=== PATIENT | male | born 1935 | race Caucasian/White ===

== ENCOUNTER 2017-03-30 06:03 | Observation (INO) | payer MEDICARE ==
--- NOTE | 2017-03-15 08:56 | HP ---
HISTORY AND PHYSICAL: DATE OF PLANNED ADMISSION AND SURGERY: 03/30/17 HISTORY OF PRESENT ILLNESS: Mr. Loco is an 81-year-old white male who is admitted with prostate enlargement and urinary retention for transurethral resection of the prostate. Please refer to the recent full history and physical exam and cardiac evaluation by Dr. Juan Borden. I am including a copy of his note. My dictation will concentrate on the urological condition. 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 He was kept on catheter drainage and tamsulosin was added. He was given a trial of voiding, but he failed it. He then had a cystoscopy which showed diffuse bladder trabeculations and prostate enlargement, but no bladder lesions seen. He had urodynamic studies in July 2016. The study showed poor detrusor voiding pressure, and the findings were consistent with impaired detrusor contraction, making him not a candidate for TURP. He was given the option to go on intermittent self-catheterization, but he preferred to stay on chronic Bower. The patient stayed on catheter drainage and on the finasteride. He had repeat urodynamic studies last month. The study showed recovery of his detrusor function and he was able to generate a voiding detrusor pressure of 50 cm water. This was felt to be enough that he would be a candidate for TURP. He had repeat cystoscopy this month and the study continued to show an enlarged obstructing prostate. He again failed a trial of voiding and the Bower catheter was reinserted. His past history is otherwise negative. His examination was normal and rectal exam showed an enlarged, but non-suspicious prostate. The patient is on multiple medications for his cardiac condition. He has a pacemaker. He is also on warfarin. He was advised to discontinue the warfarin 6 days prior to the planned surgery. I discussed the operation in detail with the patient and his . Some of the potential complications including infection, gross hematuria, persistent urinary retention because of the element of the flaccid bladder were also discussed. All their questions were answered. CC: Estiven Young MD* [id number]/[facility] #: [id number] JR
[~2017-03-30 06:03] MED LIST: Buffered Lidocaine 1% SYR 3ML* 3 ML/SYR SYRINGE INTRADERM ONE; Famotidine IV* 10 MG/ML 2 ML (20 mg) IV ONE; ZOSYN 3.375 GM ONE TIME DOSE-OVER 30 MINUTES IVPB
[2017-03-30] MEDS ORDERED: Famotidine IV* 10 MG/ML 2 ML (20 mg) ONE (06:14)
[2017-03-30] MEDS ORDERED: Dexamethasone IV* 4 MG/ML 1 ML (4 MG) ONE (07:18)
[2017-03-30] MEDS ORDERED: Midazolam* 1 MG/ML 5 ML VIAL (5 MG) ONE (07:18)
[2017-03-30] MEDS ORDERED: Ondansetron INJ* 2 MG/ML VIAL ONE (07:18)
[2017-03-30] MEDS ORDERED: Propofol* 10 MG/ML 20 ML BTL IV PUSH ONE (07:18)
[2017-03-30] MEDS ORDERED: KETAMINE HCL* 50 MG/ML 10 ML VIAL ONE (07:18)
[2017-03-30] MEDS ORDERED: Lidocaine 2% PF * 5 ML VIAL ONE (07:18)
[2017-03-30] MEDS ORDERED: fentaNYL* 50 MCG/ML 2 ML VIAL (100 MCG VIAL) ONE (07:18)
[2017-03-30] MEDS ORDERED: Phenylephrine INJ* 10 MG/ML 1 ML VIAL (10 MG) ONE (07:18)
[2017-03-30] MEDS ORDERED: Acetaminophen IV 1GM/100ML * 100 ML IVPB ONE (09:25)
[2017-03-30] MEDS ORDERED: fentaNYL* 50 MCG/ML 2 ML VIAL (100 MCG VIAL) IV PRN (09:25)
[2017-03-30] MEDS ORDERED: Ondansetron INJ* 2 MG/ML VIAL IV PRN (09:25)
[2017-03-30] MEDS ORDERED: Acetaminophen IV 1GM/100ML * 100 ML ONE (11:21)
[2017-03-30] MEDS ORDERED: LORazepam TAB(*) 0.5 MG PO PRN (12:32)
[2017-03-30] MEDS: LR @ 40 MLS/HR IV SCH ×2 (12:40→23:58)
[2017-03-30] MEDS: Ferrous Sulfate TAB* 325 MG PO SCH (12:58)
[2017-03-30] MEDS: Multivitamins/Minerals TAB PO SCH (12:58)
[2017-03-30] MEDS: Finasteride TAB* 5 MG PO SCH (12:59)
--- NOTE | 2017-03-30 13:09 | OP ---
DATE OF OPERATION: 03/30/17 - ROOM #336 DATE OF : 31 SURGEON: Bienvenido Mayo MD ANESTHESIOLOGIST: Dr. Abdias Hooper. ANESTHESIA: Spinal. PRE-OP DIAGNOSES: 1. Urinary retention. 2. Benign prostatic hyperplasia. POST-OP DIAGNOSES: 1. Urinary retention. 2. Benign prostatic hyperplasia. OPERATIVE PROCEDURE: 1. Cystoscopy. 2. Transurethral resection of the prostate. INDICATIONS FOR PROCEDURE: Mr. Loco is an 81-year-old white male who went into urinary retention about 9 months ago. At that time he failed a trial voiding while on tamsulosin and his urodynamic study showed poor detrusor contraction and he was kept on catheter drainage. He had repeat urodynamic studies last month showing recovery of the detrusor function and cystoscopy showed an obstructing prostate, he again failed a trial of voiding. He was felt to be a candidate for transurethral resection of the prostate. He had preoperative cardiac evaluation and clearance by Dr. Borden. He is now brought in for the above procedure. PATHOLOGY: At cystoscopy, the penile and bulbar urethra looked normal. The prostatic urethra measured 3 cm in length and there was moderate obstruction by trilobar hyperplasia of the prostate. Examination of the bladder showed moderate diffuse trabeculations. There was significant degree of catheter reaction. There were no suspicious bladder lesion seen. No calculi or diverticula were noted. The prostate adenoma was slightly vascular reflecting the effect of finasteride. There were no other abnormalities noted. DESCRIPTION OF THE PROCEDURE: After successful spinal anesthesia, the patient was placed in the lithotomy position and was prepped and draped for cystoscopy. Cystoscopy was performed. The bladder was carefully inspected and the above findings were noted. The resectoscope was then introduced inside the bladder. Mannitol-sorbitol solution was used for irrigation and the inflow and outflow were adjusted to avoid over distension of the bladder. Resection of the adenoma was started posteriorly between 3 o'clock and 8 o' clock that allowed visualization of the bladder neck at the level of the veru. The left lobe was then resected starting at 5 o'clock and proceeding anteriorly. The right lobe was resected next. The roof and the apical tissue were resected last. The limits of the resection were the bladder neck proximally, the veru distally, and the capsule circumferentially. The bleeders were electrocoagulated and controlled. The bladder was irrigated and the resected prostate tissue was evacuated and sent for pathology. At the completion of the resection, the prostatic urethra was wide open. Both ureteral orifices were intact. There was no bladder wall injury. The capsule was intact. There were no open sinuses and there was very good hemostasis. The veru and the external sphincter were intact. There was no significant residual obstructing tissue. At the completion of the procedure, the resectoscope was removed and the size 22 sinhala Bower catheter was placed inside the bladder and the balloon inflated with 30 cc of water and the catheter was placed under gentle traction and taped to the right side of the patient. Irrigation yielded clear returns. The patient tolerated the procedure well and left the operating room in good condition. The blood loss was negligible at less then 50 cc. The specimen was prostate chips. CC: Estiven Young MD* [id number]/[facility] #: [id number] MTDD
[2017-03-30] MEDS ORDERED: Furosemide IV* 10 MG/ML 2 ML VIAL (20 MG) ONE (13:25)
[2017-03-30] MEDS ORDERED: Piperac/Tazob 3.375 gm in NS* 3.375 GM/100 ML BAG IVPB SCH (15:30)
[2017-03-30] MEDS: Piperac/Tazob 3.375 gm in NS* 3.375 GM/100 ML BAG IVPB SCH ×2 (16:40→23:03)
[2017-03-30] MEDS: Insulin LISPRO* 1 UNITS UNIT SUBCUT SCH (17:52)
[2017-03-30] MEDS: Oxybutynin TAB* 5 MG PO PRN (19:26)
[2017-03-30] MEDS: Acetaminophen TAB* 325 MG PO PRN (19:29)
[2017-03-30] MEDS ORDERED: Atorvastatin* 40 MG TAB PO SCH (21:00)
[2017-03-30] MEDS: glipiZIDE TAB* 5 MG PO SCH (21:26)
[2017-03-31] MEDS: Insulin LISPRO* 1 UNITS UNIT SUBCUT SCH ×2 (00:40→07:03)
[2017-03-31] MEDS: Piperac/Tazob 3.375 gm in NS* 3.375 GM/100 ML BAG IVPB SCH ×2 (04:35→04:47)
[2017-03-31] MEDS: Oxybutynin TAB* 5 MG PO PRN (07:35)
[2017-03-31] MEDS: Acetaminophen TAB* 325 MG PO PRN (07:35)
[2017-03-31 08:01] VITALS: BP 180/80
[2017-03-31] MEDS ORDERED: Furosemide IV* 10 MG/ML 2 ML VIAL (20 MG) ONE (08:49)
[2017-03-31] MEDS: Multivitamins/Minerals TAB PO SCH (08:53)
[2017-03-31] MEDS: glipiZIDE TAB* 5 MG PO SCH (08:53)
[2017-03-31] MEDS: Finasteride TAB* 5 MG PO SCH (08:53)
[2017-03-31] MEDS: Ferrous Sulfate TAB* 325 MG PO SCH (08:53)
[2017-03-31] MEDS ORDERED: Furosemide IV* 10 MG/ML 2 ML VIAL (20 MG) IV ONE (09:00)
[2017-03-31] MEDS ORDERED: Metoprolol Succinate XL TAB* 25 MG PO SCH (09:00)
[2017-03-31] MEDS ORDERED: Insulin GLARGINE(*) 1 UNITS UNIT SUBCUT SCH (09:00)
[2017-03-31] MEDS ORDERED: CMC:Escitalopram (NF) 10 MG TAB PO SCH (09:00)
--- NOTE | 2017-04-01 01:36 | DS ---
DISCHARGE SUMMARY: DATE OF ADMISSION: 03/30/17 DATE OF DISCHARGE: 03/31/17 FINAL DIAGNOSES: 1. Urinary retention. 2. Benign prostatic hyperplasia. 3. Coronary artery disease. 4. History of cerebrovascular accident. 5. Essential hypertension. 6. Chronic obstructive pulmonary disease. 7. 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 OPERATION: Transurethral resection of the prostate on 03/30/17. HISTORY: Mr. Loco is an 81-year-old white male who went into urinary retention about 9 months ago. At that time, his urodynamic studies showed flaccid bladder and he was not found to be a candidate for prostatectomy. He had been kept on catheter drainage all this time. He was reevaluated recently and had a repeat urodynamic studies, which showed a partial recovery of the detrusor function and made him a candidate for TURP. The patient has been maintained on finasteride all this time. The patient has significant medical problems including history of coronary artery disease, aortic and mitral valve disease, history of CVAs and TIAs. He had been maintained on warfarin. He was evaluated preoperatively by Dr. Borden, his mixed animal veterinarian, and by Dr. Young. The patient was cleared for the procedure by Dr. Borden and the patient was admitted yesterday for transurethral resection of the prostate. He had been off the Coumadin for 5 days preoperatively. His preoperative lab work was all within normal. COURSE IN THE HOSPITAL: The patient was admitted the morning of his surgery. He underwent an uncomplicated transurethral resection of the prostate under spinal anesthesia. His postoperative course was very smooth. He was maintained on Zosyn pre and postoperatively because of resistant pseudomonas. He developed a brief episode of hypertension postoperatively with his systolic reaching 180. He responded well to 10 mg of Lasix. At the time of his discharge, the patient was doing very well. He has remained afebrile and his urine was clear. He did not have any chest pain or shortness of breath. The patient is being discharged home with a Bower catheter. He is to continue on all his preoperative medications with the exception of the baby aspirin and the warfarin, which he will stay off for one more week and they would be restarted afterwards. I will see him in the office next week for Bower catheter removal. CC: Dr. Estiven Young* [id number]/[facility] #: [id number] [facility]
== END 2017-03-31 10:00 | disposition home or self-care (01) ==
LOC: OR 06:03 → SSU 11:58
PROVIDERS: ADMIT Urology; ATTEND Urology
PROC: 0VT08ZZ Resection of Prostate, Via Natural or Artificial Opening Endoscopic (ICD-10-PCS; principal; 2017-03-30 07:45)
DX: N40.1 Benign prostatic hyperplasia with lower urinary tract symptoms (principal); R33.8 Other retention of urine; I25.10 Atherosclerotic heart disease of native coronary artery without angina pectoris; I10 Essential (primary) hypertension; Z86.73 Personal history of transient ischemic attack (TIA), and cerebral infarction without residual deficits; I08.0 Rheumatic disorders of both mitral and aortic valves; J44.9 Chronic obstructive pulmonary disease, unspecified; Z88.5 Allergy status to narcotic agent; Z79.01 Long term (current) use of anticoagulants; E11.9 Type 2 diabetes mellitus without complications; Z79.4 Long term (current) use of insulin
CPT/HCPCS: 36415; 85610; 85730; 88305; 96365; 96366; 96374; 96376; A9270-GY; G0378; J1100; J1940; J2250; J2405; J2543; J2704; J3010

== ENCOUNTER 2017-10-18 19:18 | Emergency (ER) | payer MEDICARE ==
[2017-10-18] MEDS ORDERED: Acetaminophen TAB* 325 MG PO ONE (19:31)
--- NOTE | 2017-10-18 20:15 | RAD ---
Indication: Fall, head injury. CT of the brain was performed without IV contrast. Ventricular structures are midline. No midline shift is noted. The extraction spaces are unremarkable. There is no evidence of abdominal mass or hemorrhage. No other high or low density lesions are noted. Bilateral basal ganglia calcifications are unchanged from prior exam. Mastoid air cells and paranasal sinuses are otherwise unremarkable. IMPRESSION: No intracranial mass or hemorrhage is noted.
--- NOTE | 2017-10-18 20:17 | RAD ---
Indication: Neck injury. CT of the cervical spine was obtained in the axial plane. Sagittal and coronal reconstructed images were obtained. CTA of the neck was performed reviewed. Skull base demonstrates no fracture. C1 ring is intact. Degenerative disc disease at C2-C3 is noted. At C3-C4 there is degenerative disc disease. Dorsal osteophyte formation is noted. No foraminal stenosis is noted. At C4-C5 and C5-C6 spondylosis is noted. No fracture is noted. No central or foraminal stenosis is noted. At C6-C7 spondylitic ridge is noted. No fractures noted. No central or foraminal stenosis is identified. Spinal canal appears to be intact. IMPRESSION: Multilevel degenerative disc disease without definite evidence of fracture.
--- NOTE | 2017-10-18 20:22 | RAD ---
Indication: Fall, facial injury. Right infraorbital swelling. CT of the facial bones was obtained in the axial plane. Sagittal and coronal reconstructed images were obtained. The frontal sinuses are clear without evidence of fracture or air-fluid levels. The orbits are intact. No fractures identified. Nasal arch is intact without fracture. Minimal mucosal thickening of the left maxillary sinus is noted. Zygomatic arch is intact without fracture. The mandible demonstrates no evidence of fracture. Temporomandibular joints are grossly unremarkable. Pterygoid plates and maxilla show no fracture. Visualized cervical spine demonstrates no fracture. IMPRESSION: No fracture of the facial bones is identified.
[2017-10-18 20:41] LABS: Hematocrit 42 % (42-52); Hemoglobin 13.6 g/dl (14.0-18.0); Mean Corpuscular HGB Conc 32 g/dl (31-36); Mean Corpuscular Hemoglobin 29 pg (27-31); Mean Corpuscular Volume 89 fL (80-94); Mean Platelet Volume 8 um3 (7.4-10.4); Red Blood Count 4.75 10^6/ul (4.0-5.4); Red Cell Distribution Width 15 % (10.5-15); White Blood Count 6.1 10^3/ul (3.5-10.8)
[2017-10-18 20:56] LABS: Albumin 3.7 g/dL (3.2-5.2); BUN/Creatinine Ratio 16.4 (8-20); Direct Bilirubin 0.1 mg/dL (0.03-0.18); EGFR African American 68.9 (>60); EGFR Non-African American 53.5 (>60); Globulin 2.5 g/dL (2-4); Indirect Bilirubin 0.6 mg/dL (0.3-1.0); Potassium 4.8 mmol/L (3.5-5.0); Total Bilirubin 0.7 mg/dL (0.2-1.0); Total Protein 6.2 g/dL (6.4-8.9)
--- NOTE | 2017-10-18 21:55 | RAD ---
Indication: Right hip pain. 2 views of the right hip and an AP view the pelvis and straight no fracture. Pelvic ring is intact. IMPRESSION: No fracture of the right hip or pelvis.
--- NOTE | 2017-10-18 21:56 | RAD ---
Indication: Right shoulder pain. 4 views of the right shoulder demonstrates prior acromioplasty and distal clavicle resection. There is a superiorly subluxed humeral head with glenohumeral joint arthritis. Presumed rotator cuff tear is noted. IMPRESSION: Superiorly subluxed humeral head. This is likely due to chronic rotator cuff tear. Postoperative changes distal clavicle.
--- NOTE | 2017-10-18 21:58 | RAD ---
Indication: Back pain. 3 views of lumbar spine demonstrates grade 1 spondylolisthesis of L4 on 5. Transpedicular screws are noted. Spondylolisthesis is similar to that seen on March 17, 2007. Degenerative disc disease at L2-L3. IMPRESSION: Postoperative changes. Grade 1 spondylolisthesis of L4 on 5 is noted.
--- NOTE | 2017-10-18 21:59 | RAD ---
Indication: Right rib pain. 3 views of the right ribs demonstrate no fracture. Patient status post transsternal thoracotomy. A PA view the chest demonstrates patient is status post tracer thoracotomy. No pneumothorax is noted. IMPRESSION: No fracture of the ribs is noted.
[2017-10-18] MEDS ORDERED: traMADol TAB* 50 MG PO ONE (22:23)
[2017-10-18 23:00] VITALS: BP 121/76
--- NOTE | 2017-10-26 13:13 | ED ---
Lanie Sloan Nilda, scribed for Reji Sharma MD on 10/18/17 at 2059 . Adult Trauma - HPI Summary HPI Summary: This patient is an 82 year old M presenting to [facility] accompanied by family with a chief complaint of injuries s/p tripping and sliding down 8 steps a few hours ago. The patient rates the pain 6/10 in severity. Symptoms aggravated by movement and alleviated by rest. Patient reports facial abrasion, right shoulder pain, hip pain, right ankle strain, left knee abrasion and ecchymosis, and back pain (chronic, currently exacerbated). Patient denies CHOW and LOC. Per , pt fell the other day resulting in back pain. Pt's back was evaluated by PCP who noted that it was likely bruised. Pt normally ambulates with a walker/ cane. Per son, pt has become more unsteady and does not abide my his limitations. Medications include Coumadin. - History of Current Complaint Chief Complaint: EDHeadInjury Stated Complaint: FALL Time Seen by Provider: 10/18/17 19:25 Hx Obtained From: Patient, Family/Global Chief Experience Officer - son and Mechanism of Injury: Fall Loss of Consciousness: no loss of consciousness Onset/Duration: Started Hours Ago, Still Present Current Severity: Moderate Pain Intensity: 6 Pain Scale Used: 0-10 Numeric Location: Head, Back, Extremities Aggravating Factor(s): Movement Alleviating Factor(s): Rest Associated Signs & Symptoms: Positive: Other: - facial abrasion, right shoulder pain, hip pain, right ankle strain, left knee abrasion and ecchymosis, and back pain (chronic, currently exacerbated). Patient denies CHOW and LOC. Related History: Anticoagulants - Coumadin - Allergy/Home Medications Allergies/Adverse Reactions: Allergies Allergy/AdvReac Type Severity Reaction Status Date / Time Hydrocodone [From Vicodin] AdvReac Severe Altered Verified 03/30/17 06:21 Mental Status Morphine AdvReac Severe Altered Verified 03/30/17 06:21 Mental Status narcotics AdvReac Severe Altered Uncoded 03/30/17 06:21 Mental Status PMH/Surg Hx/FS Hx/Imm Hx Endocrine/Hematology History: Reports: Hx Diabetes, Hx Anemia Denies: Hx Anticoagulant Therapy, Hx Thyroid Disease Cardiovascular History: Reports: Hx Angina, Hx Coronary Artery Disease, Hx Hypercholesterolemia, Hx Hypertension, Hx Myocardial Infarction, Hx Pacemaker/ ICD, Hx Peripheral Vascular Disease - poor circulation, left is worse, Hx Valvular Heart Disease - Aortic valve replacement., Other Cardiovascular Problems/Disorders - CAD, CHRONIC RENAL FAILURE Denies: Hx Congestive Heart Failure Respiratory History: Reports: Hx Sleep Apnea Denies: Hx Asthma, Hx Chronic Obstructive Pulmonary Disease (COPD), Other Respiratory Problems/Disorders GI History: Reports: Hx Hiatal Hernia Denies: Hx Jaundice, Other GI Disorders History: Reports: Hx Benign Prostatic Hyperplasia, Hx Chronic Renal Failure Denies: Hx Renal Disease, Other Problems/Disorders Musculoskeletal History: Reports: Hx Back Problems - chronic low back pain, degenerative disc disease, Other Musculoskeletal History - Wild in back Sensory History: Reports: Hx Cataracts, Hx Contacts or Glasses, Other Sensory Impairments - vertigo Denies: Hx Hearing Aid Opthamlomology History: Reports: Hx Cataracts, Hx Contacts or Glasses, Other Sensory Impairments - vertigo Neurological History: Reports: 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 HEART VALVE REPLACEMENT 2013. Numerous back surgeries. Hx Anesthesia Reactions: No Infectious Disease History: No Infectious Disease History: Denies: Hx Hepatitis, Hx Human Immunodeficiency Virus (HIV), Traveled Outside the [place] in Last 30 Days - Family History Known Family History: Positive: Diabetes - Social History Lives: With Family Alcohol Use: None Substance Use Type: Reports: None Hx Tobacco Use: Yes Smoking Status (MU): Former Smoker Amount Used/How Often: 1pk per day Length of Time of Smoking/Using Tobacco: 25 Have You Smoked in the Last Year: No Review of Systems Negative: Fever, Chills Negative: Erythema Negative: Sore Throat Negative: Chest Pain Negative: Shortness Of Breath, Cough Negative: Abdominal Pain, Vomiting, Nausea Negative: dysuria, hematuria Positive: Other - facial abrasion, right shoulder pain, hip pain, right ankle strain, left knee abrasion and ecchymosis, and back pain (chronic, currently exacerbated).. Negative: Myalgia, Edema Positive: Bruising. Negative: Rash Neurological: Other - fall, unsteadiness; negative LOC, dizziness Negative: Headache All Other Systems Reviewed And Are Negative: Yes Physical Exam - Summary Physical Exam Summary: Constitutional: Well-developed, Well-nourished, Alert, Cooperative Skin: Warm, Dry HENT: Normocephalic; No Racoons eyes; No battles sign; abrasion and tenderness on right infraorbital; No contusion; No hemotympanum; No maxilla facial tenderness or instability; Dentition are smooth; No dental trauma; No trismus Eyes: EOM normal, PERRL Neck: Trachea is midline. No stridor; No JVD; No step off; tenderness over C4-C5 Cardio: Rhythm regular, rate normal Heart sounds normal; Intact distal pulses; The pedal pulses are 2+ and symmetric. Radial pulses are 2+ and symmetric. Pulmonary/Chest wall: Effort normal; Breath sounds normal; Equal chest rise; No flail segment; No rib tenderness; No sternal tenderness Abd: Soft, Appearance normal. No distension; No tenderness; No palpable pulsatile mass; No Cullens sign; No Lanza-Turners sign Musculoskeletal: Full ROM; No step off or deformity of the spine; Pelvis is stable to lateral compression and rock; Tenderness at L3, right lateral rib tenderness; abrasion on right knee Neuro: Alert, Oriented x3, Strength 5/5 all extremities. : No blood at urethral meatus Psych: Mood and affect Normal Triage Information Reviewed: Yes Vital Signs On Initial Exam: Initial Vitals Temp Pulse Resp BP Pulse Ox 97.7 F 72 16 163/72 99 10/18/17 19:19 10/18/17 19:19 10/18/17 19:19 10/18/17 19:19 10/18/17 19:19 Vital Signs Reviewed: Yes - Locke Coma Scale Best Eye Response: 4 - Spontaneous Best Motor Response: 6 - Obeys Commands Best Verbal Response: 5 - Oriented Diagnostics - Vital Signs Vital Signs Temp Pulse Resp BP Pulse Ox 10/18/17 20:22 62 94 10/18/17 19:19 97.7 F 72 16 163/72 99 - Laboratory Result Diagrams: 10/18/17 20:19 10/18/17 20:19 Lab Statement: Any lab studies that have been ordered have been reviewed, and results considered in the medical decision making process. - Radiology Rib XR Radiology Interpretation Completed By: Radiologist - Rib XR, per radiologist, reveals no fracture of the ribs is noted. ED physician has reviewed this radiology report and agrees. Lumbar spine XR Radiology Interpretation Completed By: Radiologist - Lumbar spine XR, per radiologist, reveals postoperative changes. Grade 1 spondylolisthesis on L4 and 5 is noted. ED physician has reviewed this radiology report and agrees. Shoulder XR Radiology Interpretation Completed By: Radiologist - Shoulder XR, per radiologist, superiorly subluxed humeral head. This is likely due to chronic rotator cuff tear. Postoperative changes distal clavicle. ED physician has reviewed this radiology report and agrees. Hip/Pel XR Radiology Interpretation Completed By: Radiologist - Hip/Pelvis XR, per radiologist, reveals no fracture of the right hip or pelvis. ED physician has reviewed this radiology report and agrees. - CT Brain CT Interpretation Completed By: Radiologist - CT brain, per radiologist, reveals no intracranial mass or hemorrhage is noted. ED physician has reviewed this radiology report and agrees. C-spine CT Interpretation Completed By: Radiologist - CT c-spine, per radiologist, reveals multilevel degenerative disc disease without definite evidence of fracture. ED physician has reviewed this radiology report and agrees. Maxillofacial CT Interpretation Completed By: Radiologist - CT maxillofacial, per radiologist , reveals no fracture of the facial bones is identified. ED physician has reviewed this radiology report and agrees. Re-Evaluation - Re-Evaluation First Eval Re-Evaluation Time: 22:23 Comment: Reviewed labs and imaging. Pain minimally improved by Tylenol. Will give Tramadol in ED and for home. Advised pt to start using walker again. Pt agreeable to D/C. Adult Trauma Course/Dx - Course Assessment/Plan: This patient is an 82 year old M presenting to [facility] accompanied by family with a chief complaint of injuries s/p tripping and sliding down 8 steps a few hours ago. The patient rates the pain 6/10 in severity. Symptoms aggravated by movement and alleviated by rest. Patient reports facial abrasion, right shoulder pain, hip pain, right ankle strain, left knee abrasion and ecchymosis, and back pain (chronic, currently exacerbated ). Patient denies CHOW and LOC. Per , pt fell the other day resulting in back pain. Pt's back was evaluated by PCP who noted that it was likely bruised. Per son, pt has become more unsteady and does not abide my his limitations. Pt normally ambulates with a walker/cane. Medications include Coumadin. Pending CT Brain, CT C-Spine, CT Maxillofacial, XR Hip, XR shoulder, XR lumbar. CT brain, per radiologist, reveals no intracranial mass or hemorrhage is noted. CT maxillofacial, per radiologist, reveals no fracture of the facial bones is identified. CT c-spine, per radiologist, reveals multilevel degenerative disc disease without definite evidence of fracture. Rib XR, per radiologist, reveals no fracture of the ribs is noted. Lumbar spine XR, per radiologist, reveals postoperative changes. Grade 1 spondylolisthesis on L4 and 5 is noted. Shoulder XR, per radiologist, superiorly subluxed humeral head. This is likely due to chronic rotator cuff tear. Postoperative changes distal clavicle. Hip/ Pelvis XR, per radiologist, reveals no fracture of the right hip or pelvis. ED physician has reviewed these radiology reports and agrees. No fracture, no intracranial hemorrhage, and mental status is at baseline. In ED course, pt was given Tramadol and Tylenol. Pt is stable and will be D/C with diagnoses of mechanical fall and multiple contusions. Pt given prescription for Tramadol and was advised to use walker and follow up with PCP. Pt understands and is agreeable with this plan. - Diagnoses Provider Diagnoses: Multiple contusions, Accidental fall Discharge - Discharge Plan Condition: Stable Disposition: HOME Prescriptions: traMADol TAB* [Ultram*] 50 mg PO Q12H PRN #10 tab MDD 2 PRN Reason: Pain - Moderate To Severe traMADol TAB* [Ultram*] 50 mg PO Q12H PRN #10 tab MDD 2 PRN Reason: Pain - Moderate To Severe Patient Education Materials: Fall Prevention for Older Adults (ED), Contusion in Adults (ED) Referrals: Estiven Young MD [Primary Care Provider] - 3 Days Additional Instructions: RETURN TO THE EMERGENCY DEPARTMENT FOR CHANGING OR WORSENING SYMPTOMS. The documentation as recorded by the Lanie oliva Nilda accurately reflects the service I personally performed and the decisions made by Zachary menezes Jerry, MD.
== END 2017-10-18 23:02 | disposition home or self-care (01) ==
LOC: ED 19:18
DX: T14.8XXA Other injury of unspecified body region, initial encounter (principal); W18.09XA Striking against other object with subsequent fall, initial encounter; W10.9XXA Fall (on) (from) unspecified stairs and steps, initial encounter; Z87.891 Personal history of nicotine dependence; Z88.5 Allergy status to narcotic agent; I25.10 Atherosclerotic heart disease of native coronary artery without angina pectoris; E78.00 Pure hypercholesterolemia, unspecified; I10 Essential (primary) hypertension; I25.2 Old myocardial infarction; Z79.01 Long term (current) use of anticoagulants; M50.31 Other cervical disc degeneration, high cervical region
CPT/HCPCS: 36415; 70450; 70486; 72100; 72125; 80048; 80076; 85027; 85610; 85730; 87040; 99283; A9270-GY

== ENCOUNTER 2020-08-15 12:25 | Observation (INO) ==
[2020-08-15 16:22] LABS: ABS Monocytes 0.5 10^3/ul (0-0.8); ABS Neutrophils 3.4 10^3/ul (1.5-7.7); Eosinophil % 0.9 %; Hematocrit 36 % (42-52); Hemoglobin 11.5 g/dL (14.0-18.0); Lymphocyte % 20.4 %; Mean Corpuscular HGB Conc 32 g/dL (31-36); Mean Corpuscular Hemoglobin 26 pg (27-31); Mean Corpuscular Volume 81 fL (80-94); Mean Platelet Volume 8.1 fL (7.4-10.4); Platelet Count 220 10^3/uL (150-450); Red Blood Count 4.39 10^6 /uL (4.18-5.48); Red Cell Distribution Width 17 % (10-15); White Blood Count 5.1 10^3/uL (3.5-10.8)
[2020-08-15 16:34] LABS: Troponin I 0.01 ng/mL (<0.03)
[2020-08-15 16:41] LABS: Albumin 4.1 g/dL (3.2-5.2); Albumin/Globulin Ratio 1.6 (1-3); BUN/Creatinine Ratio 22.8 (8-20); Calcium 9.1 mg/dL (8.6-10.3); EGFR African American 112.3 (>60); EGFR Non-African American 92.8 (>60); Globulin 2.6 g/dL (2-4); Total Bilirubin 0.7 mg/dL (0.2-1.0); Total Protein 6.7 g/dL (6.4-8.9)
[2020-08-15 16:53] LABS: Urine Appearance Clear; Urine Bilirubin Negative (Negative); Urine Blood Negative (Negative); Urine Color Yellow; Urine Glucose Negative (Negative); Urine Ketones Negative (Negative); Urine Nitrite Negative (Negative); Urine Protein Negative (Negative); Urine Specific Gravity 1.008 (1.010-1.030); Urine Urobilinogen Negative (Negative)
[2020-08-15] MEDS ORDERED: Ondansetron 4 mg VIAL 2 MG/ML 2 ml VIAL IV PRN (18:03)
[2020-08-15] MEDS ORDERED: Senna TAB 8.6 mg TAB PO PRN (18:03)
[2020-08-15] MEDS ORDERED: Dextrose 50% Syringe 50 ml 25 GM/50 ML SYRINGE IV PUSH PRN (18:31)
[2020-08-15] MEDS ORDERED: Enalaprilat IV 1.25 mg/ml 1 ml VIAL (1.25 MG) IV PRN (18:32)
[2020-08-15 18:33] LABS: INR 3.05 (0.82-1.09)
[2020-08-15] MEDS: RIVASTIGMINE 3 MG PO SCH (21:10)
[2020-08-15] MEDS: Carbidopa/Levodop 25/100 MG TAB PO SCH (21:26)
[2020-08-16 06:24] LABS: ABS Eosinophils 0.1 10^3/ul (0-0.6); ABS Lymphocytes 0.8 10^3/ul (1.0-4.8); ABS Monocytes 0.6 10^3/ul (0-0.8); ABS Neutrophils 2.8 10^3/ul (1.5-7.7); Eosinophil % 2.3 %; Hematocrit 34 % (42-52); Hemoglobin 11.2 g/dL (14.0-18.0); Lymphocyte % 19.1 %; Mean Corpuscular HGB Conc 33 g/dL (31-36); Mean Corpuscular Hemoglobin 26 pg (27-31); Mean Corpuscular Volume 80 fL (80-94); Mean Platelet Volume 7.8 fL (7.4-10.4); Platelet Count 202 10^3/uL (150-450); Red Blood Count 4.25 10^6 /uL (4.18-5.48); Red Cell Distribution Width 18 % (10-15); White Blood Count 4.3 10^3/uL (3.5-10.8)
[2020-08-16 06:40] LABS: BUN/Creatinine Ratio 21.1 (8-20); Calcium 8.8 mg/dL (8.6-10.3); EGFR African American 117.4 (>60); Potassium 4.1 mmol/L (3.5-5.0)
[2020-08-16 06:43] LABS: INR 2.79 (0.82-1.09)
[2020-08-16] MEDS: Cholecalciferol (VIT D3) 1,000 unit TAB PO SCH (08:57)
[2020-08-16] MEDS: Aspirin EC 81 mg TAB.EC (enteric coated) PO SCH (08:57)
[2020-08-16] MEDS: Carbidopa/Levodop 25/100 MG TAB PO SCH ×3 (08:58→21:16)
[2020-08-16] MEDS: Insulin GLARGINE 100 un/ml 10 ml VIAL SUBCUT SCH (09:01)
[2020-08-16] MEDS: RIVASTIGMINE 3 MG PO SCH ×2 (09:02→21:17)
[2020-08-16] MEDS: Warfarin DAILY REMINDER **NOTE FOLLOW UP SCH (17:18)
[2020-08-17 06:51] LABS: BUN/Creatinine Ratio 18.5 (8-20); Calcium 8.7 mg/dL (8.6-10.3); EGFR African American 109.1 (>60); EGFR Non-African American 90.1 (>60); Potassium 4.2 mmol/L (3.5-5.0)
[2020-08-17] MEDS: Carbidopa/Levodop 25/100 MG TAB PO SCH ×3 (08:12→20:42)
[2020-08-17] MEDS: Cholecalciferol (VIT D3) 1,000 unit TAB PO SCH (08:12)
[2020-08-17] MEDS: Aspirin EC 81 mg TAB.EC (enteric coated) PO SCH (08:12)
[2020-08-17] MEDS: Insulin GLARGINE 100 un/ml 10 ml VIAL SUBCUT SCH (08:15)
[2020-08-17] MEDS: RIVASTIGMINE 3 MG PO SCH ×2 (08:15→19:32)
[2020-08-17] MEDS ORDERED: Influenza VAC *QUAD* 2020-21* 0.5 ML SYRINGE IM ONE (09:00)
[2020-08-17] MEDS: Warfarin DAILY REMINDER **NOTE FOLLOW UP SCH (17:01)
[2020-08-18 07:11] LABS: BUN/Creatinine Ratio 26.7 (8-20); Calcium 8.7 mg/dL (8.6-10.3); EGFR African American 101.8 (>60); EGFR Non-African American 84.1 (>60); Potassium 4.3 mmol/L (3.5-5.0)
[2020-08-18] MEDS: Carbidopa/Levodop 25/100 MG TAB PO SCH ×2 (07:49→13:40)
[2020-08-18] MEDS: Cholecalciferol (VIT D3) 1,000 unit TAB PO SCH (07:49)
[2020-08-18] MEDS: Aspirin EC 81 mg TAB.EC (enteric coated) PO SCH (07:49)
[2020-08-18] MEDS: RIVASTIGMINE 3 MG PO SCH (07:53)
[2020-08-18] MEDS ORDERED: Insulin GLARGINE 100 un/ml 10 ml VIAL SUBCUT SCH (09:00)
[2020-08-18 09:11] LABS: INR 2.31 (0.82-1.09)
[2020-08-18 15:12] VITALS: BP 141/60
== END 2020-08-18 17:50 | disposition home health service (06) | DRG 57 ==
LOC: ED 12:25 → MEDTELE 12:25 → OBSVTOIN 17:05 → INTOOBSV 17:05 → MEDTELE 18:51
PROVIDERS: ADMIT Internal Medicine; ATTEND Internal Medicine

== ENCOUNTER 2020-11-04 15:39 | Inpatient (IN) ==
[2020-11-04 18:30] LABS: ABS Eosinophils 0.1 10^3/ul (0-0.6); ABS Monocytes 0.5 10^3/ul (0-0.8); ABS Neutrophils 2.3 10^3/ul (1.5-7.7); Eosinophil % 1.9 %; Hematocrit 36 % (42-52); Hemoglobin 11.5 g/dL (14.0-18.0); Lymphocyte % 26.6 %; Mean Corpuscular HGB Conc 32 g/dL (31-36); Mean Corpuscular Hemoglobin 26 pg (27-31); Mean Corpuscular Volume 81 fL (80-94); Mean Platelet Volume 8.1 fL (7.4-10.4); Platelet Count 226 10^3/uL (150-450); Red Blood Count 4.47 10^6 /uL (4.18-5.48); Red Cell Distribution Width 18 % (10-15); White Blood Count 3.9 10^3/uL (3.5-10.8)
[2020-11-04] MEDS ORDERED: Phytonadione Oral Solution 5 MG/25 ML UDC PO ONE (18:47)
[2020-11-04 18:49] LABS: Albumin 3.9 g/dL (3.2-5.2); Albumin/Globulin Ratio 1.6 (1-3); BUN/Creatinine Ratio 21.2 (8-20); Calcium 9.4 mg/dL (8.6-10.3); EGFR African American 81.7 (>60); EGFR Non-African American 67.6 (>60); Globulin 2.5 g/dL (2-4); Magnesium 2.1 mg/dL (1.9-2.7); Potassium 4.6 mmol/L (3.5-5.0); Total Bilirubin 0.5 mg/dL (0.2-1.0); Total Protein 6.4 g/dL (6.4-8.9)
[2020-11-04 18:51] LABS: CKMB ng/mL 3.4 ng/mL (0.6-6.3)
[2020-11-04 19:13] LABS: Urine Appearance Clear; Urine Bilirubin Negative (Negative); Urine Blood Negative (Negative); Urine Color Yellow; Urine Glucose 3+(>=500 mg/dL) (Negative); Urine Ketones Negative (Negative); Urine Nitrite Negative (Negative); Urine Protein Negative (Negative); Urine Specific Gravity 1.007 (1.010-1.030); Urine Urobilinogen Negative (Negative)
[2020-11-04] MEDS ORDERED: Senna TAB 8.6 mg TAB PO PRN (20:41)
[2020-11-04] MEDS: Carbidopa/Levodop 25/100 MG TAB PO SCH (23:12)
[2020-11-04] MEDS: RIVASTIGMINE 3 MG PO SCH (23:16)
[2020-11-05] MEDS ORDERED: Dextrose 50% Syringe 50 ml 25 GM/50 ML SYRINGE IV PUSH PRN (00:27)
[2020-11-05 00:47] LABS: INR 2.46 (0.82-1.09)
[2020-11-05 06:53] LABS: ABS Eosinophils 0.1 10^3/ul (0-0.6); ABS Lymphocytes 0.9 10^3/ul (1.0-4.8); ABS Monocytes 0.5 10^3/ul (0-0.8); ABS Neutrophils 2.6 10^3/ul (1.5-7.7); Eosinophil % 2.3 %; Hematocrit 34 % (42-52); Lymphocyte % 21.4 %; Mean Corpuscular HGB Conc 32 g/dL (31-36); Mean Corpuscular Hemoglobin 26 pg (27-31); Mean Corpuscular Volume 81 fL (80-94); Mean Platelet Volume 8.3 fL (7.4-10.4); Platelet Count 214 10^3/uL (150-450); Red Cell Distribution Width 17 % (10-15); White Blood Count 4.1 10^3/uL (3.5-10.8)
[2020-11-05 06:58] LABS: INR 2.13 (0.82-1.09)
[2020-11-05] MEDS ORDERED: Phytonadione IV (Adult) 2.5 MG in NS 0.9% 50 ML 50 ML IV ONE (07:13)
[2020-11-05 07:21] LABS: BUN/Creatinine Ratio 24.4 (8-20); Calcium 9.2 mg/dL (8.6-10.3); EGFR African American 101.8 (>60); EGFR Non-African American 84.1 (>60); Potassium 3.9 mmol/L (3.5-5.0)
[2020-11-05] MEDS ORDERED: Perflutren Lipid Microsphere 3 ML VIAL ONE (08:09)
[2020-11-05] MEDS ORDERED: Aspirin EC 81 mg TAB.EC (enteric coated) PO SCH (09:00)
[2020-11-05] MEDS: Carbidopa/Levodop 25/100 MG TAB PO SCH ×3 (09:11→21:23)
[2020-11-05] MEDS: Multivitamins/Minerals TAB PO SCH (11:54)
[2020-11-05] MEDS: RIVASTIGMINE 3 MG PO SCH ×2 (11:54→21:59)
[2020-11-05] MEDS: Cholecalciferol (VIT D3) 1,000 unit TAB PO SCH (11:54)
[2020-11-05 12:32] LABS: INR 1.89 (0.82-1.09)
[2020-11-05] MEDS ORDERED: Iohexol 300 (CONTRAST) 10 ML SDV ONE ×3 (14:04→18:47)
[2020-11-05 18:16] LABS: INR 1.7 (0.82-1.09)
[2020-11-05] MEDS ORDERED: Lidocaine 1% VIAL 10 MG/ML VIAL ONE (18:46)
[2020-11-05] MEDS ORDERED: Iohexol 350 (CONTRAST) 200 ML MDV IV ONE (18:47)
[2020-11-05] MEDS ORDERED: Ondansetron 4 mg VIAL 2 MG/ML 2 ml VIAL IV ONE (20:26)
[2020-11-05] MEDS ORDERED: Furosemide 20 mg/2 ml IV VIAL IV ONE (21:10)
[2020-11-05] MEDS ORDERED: Furosemide 40 mg/4 ml IV VIAL IV SLOW PU ONE (23:00)
[2020-11-06] MEDS: NS 0.9% 1000 ml BAG 1,000 ML IV SCH ×2 (02:25→22:12)
[2020-11-06] MEDS ORDERED: ceFAZolin 2 GM PREMIX 2 GM/50 ML BAG IVPB ONE (07:00)
[2020-11-06] MEDS ORDERED: Lidocaine 1% VIAL 10 MG/ML VIAL ONE (09:12)
[2020-11-06] MEDS ORDERED: diPHENhydraMINE IV 50 MG/ML 1 ml VIAL (BENADRYL) ONE (09:24)
[2020-11-06] MEDS ORDERED: Midazolam 5 mg/5 ml VIAL 1 mg/ml 5 ml VIAL (5 mg) ONE (09:24)
[2020-11-06] MEDS ORDERED: Iohexol 300 (CONTRAST) 10 ML SDV ONE (09:25)
[2020-11-06] MEDS ORDERED: fentaNYL 100 mcg/2 ml 50 MCG/ML VIAL ONE (10:19)
[2020-11-06] MEDS ORDERED: Haloperidol 5 mg/ml SDV IV/IM 5 MG/ML AMP IV SLOW PU ONE (12:44)
[2020-11-06] MEDS ORDERED: Haloperidol 5 mg/ml SDV IV/IM 5 MG/ML AMP ONE (12:46)
[2020-11-06] MEDS: Carbidopa/Levodop 25/100 MG TAB PO SCH ×4 (13:41→20:41)
[2020-11-06] MEDS: Cholecalciferol (VIT D3) 1,000 unit TAB PO SCH (13:42)
[2020-11-06] MEDS: Multivitamins/Minerals TAB PO SCH (13:42)
[2020-11-06] MEDS: RIVASTIGMINE 3 MG PO SCH ×2 (13:43→20:58)
[2020-11-06] MEDS ORDERED: ceFAZolin 500 MG VIAL 500 MG in NS 0.9% 50 ML 50 ML IVPB SCH (16:00)
[2020-11-06] MEDS: ceFAZolin 1 GM X 3 DOSES POST-OP Q8H (AddVan) IVPB SCH ×2 (17:16→23:05)
[2020-11-06 18:45] LABS: Urine Appearance Cloudy; Urine Bilirubin Negative (Negative); Urine Blood 2+ (Negative); Urine Color Yellow; Urine Glucose 3+(>=500 mg/dL) (Negative); Urine Ketones 1+ (Negative); Urine Nitrite Negative (Negative); Urine Protein 2+(100 mg/dL) (Negative); Urine Specific Gravity 1.022 (1.010-1.030); Urine Urobilinogen Negative (Negative)
[2020-11-06 19:10] LABS: Urine Bacteria Absent (Absent); Urine Red Blood Cell 2+(6-10/hpf) (Absent); Urine Squamous Epithelial Cell Present (Absent); Urine White Blood Cell Absent (Absent)
[2020-11-07 02:48] LABS: INR 1.28 (0.82-1.09)
[2020-11-07 04:38] LABS: ABS Lymphocytes 0.6 10^3/ul (1.0-4.8); ABS Monocytes 0.5 10^3/ul (0-0.8); ABS Neutrophils 4.9 10^3/ul (1.5-7.7); Eosinophil % 0.1 %; Hematocrit 32 % (42-52); Hemoglobin 10.2 g/dL (14.0-18.0); Lymphocyte % 9.5 %; Mean Corpuscular HGB Conc 32 g/dL (31-36); Mean Corpuscular Hemoglobin 26 pg (27-31); Mean Corpuscular Volume 81 fL (80-94); Mean Platelet Volume 8.6 fL (7.4-10.4); Platelet Count 174 10^3/uL (150-450); Red Blood Count 3.95 10^6 /uL (4.18-5.48); Red Cell Distribution Width 17 % (10-15); White Blood Count 6.1 10^3/uL (3.5-10.8)
[2020-11-07 04:51] LABS: BUN/Creatinine Ratio 25.4 (8-20); Calcium 8.9 mg/dL (8.6-10.3); EGFR Non-African American 104.9 (>60); Potassium 3.7 mmol/L (3.5-5.0)
[2020-11-07] MEDS: ceFAZolin 1 GM X 3 DOSES POST-OP Q8H (AddVan) IVPB SCH (08:27)
[2020-11-07] MEDS: Carbidopa/Levodop 25/100 MG TAB PO SCH ×3 (08:29→20:51)
[2020-11-07] MEDS: Cholecalciferol (VIT D3) 1,000 unit TAB PO SCH (08:30)
[2020-11-07] MEDS: Multivitamins/Minerals TAB PO SCH (08:31)
[2020-11-07] MEDS: RIVASTIGMINE 3 MG PO SCH ×2 (08:32→20:52)
[2020-11-07] MEDS ORDERED: Haloperidol 5 mg/ml SDV IV/IM 5 MG/ML AMP IV SLOW PU PRN (11:35)
[2020-11-08 06:21] LABS: Hematocrit 33 % (42-52); Hemoglobin 10.8 g/dL (14.0-18.0); Mean Corpuscular HGB Conc 32 g/dL (31-36); Mean Corpuscular Hemoglobin 26 pg (27-31); Mean Corpuscular Volume 81 fL (80-94); Mean Platelet Volume 8.3 fL (7.4-10.4); Platelet Count 175 10^3/uL (150-450); Red Blood Count 4.12 10^6 /uL (4.18-5.48); Red Cell Distribution Width 17 % (10-15); White Blood Count 5.8 10^3/uL (3.5-10.8)
[2020-11-08 06:27] LABS: INR 1.23 (0.82-1.09)
[2020-11-08 06:35] LABS: BUN/Creatinine Ratio 21.3 (8-20); Calcium 9.1 mg/dL (8.6-10.3); EGFR African American 110.6 (>60); EGFR Non-African American 91.4 (>60); Potassium 3.6 mmol/L (3.5-5.0)
[2020-11-08] MEDS: Cholecalciferol (VIT D3) 1,000 unit TAB PO SCH (08:07)
[2020-11-08] MEDS: Carbidopa/Levodop 25/100 MG TAB PO SCH ×3 (08:07→20:32)
[2020-11-08] MEDS: RIVASTIGMINE 3 MG PO SCH ×2 (08:08→20:33)
[2020-11-08] MEDS: Multivitamins/Minerals TAB PO SCH (08:08)
[2020-11-08 08:13] LABS: Magnesium 1.9 mg/dL (1.9-2.7)
[2020-11-08] MEDS ORDERED: Insulin GLARGINE 100 un/ml 10 ml VIAL SUBCUT SCH (21:00)
[2020-11-08] MEDS ORDERED: LORazepam 2 mg VIAL 1 ml IV PUSH PRN (21:17)
[2020-11-08] MEDS ORDERED: Lorazepam PYXIS KEY PRN (21:17)
[2020-11-09 06:16] LABS: Hematocrit 33 % (42-52); Hemoglobin 10.7 g/dL (14.0-18.0); Mean Corpuscular HGB Conc 32 g/dL (31-36); Mean Corpuscular Hemoglobin 26 pg (27-31); Mean Corpuscular Volume 81 fL (80-94); Mean Platelet Volume 8.7 fL (7.4-10.4); Platelet Count 161 10^3/uL (150-450); Red Blood Count 4.11 10^6 /uL (4.18-5.48); Red Cell Distribution Width 17 % (10-15); White Blood Count 4.9 10^3/uL (3.5-10.8)
[2020-11-09 06:33] LABS: BUN/Creatinine Ratio 26.8 (8-20); Calcium 8.8 mg/dL (8.6-10.3); EGFR Non-African American 104.9 (>60); Potassium 3.4 mmol/L (3.5-5.0)
[2020-11-09] MEDS ORDERED: Potassium Chlor 20 meq TAB.ER PO ONE (07:30)
[2020-11-09] MEDS: Multivitamins/Minerals TAB PO SCH (08:21)
[2020-11-09] MEDS: Cholecalciferol (VIT D3) 1,000 unit TAB PO SCH (08:21)
[2020-11-09] MEDS: Carbidopa/Levodop 25/100 MG TAB PO SCH ×2 (08:21→14:14)
[2020-11-09] MEDS: RIVASTIGMINE 3 MG PO SCH (08:39)
[2020-11-09 11:56] LABS: INR 1.31 (0.82-1.09)
[2020-11-09 16:44] VITALS: BP 110/60
== END 2020-11-09 17:28 | disposition home health service (06) | DRG 260 ==
LOC: MEDTELE 15:39 → ED 15:39 → MEDTELE 23:06 → ICU 11-05 20:31 → MEDTELE 11-06 22:55
PROVIDERS: ADMIT Internal Medicine; ATTEND Internal Medicine